=== PATIENT | female | born 1990 | race Caucasian/White ===

== ENCOUNTER 2021-04-16 10:27 | Emergency (ER) | payer OTHER ==
[~2021-04-16] VITALS: Ht 160 cm; Wt 99.8 kg
[2021-04-16 11:50] LABS: Source, Urine Clean Catch
[2021-04-16 12:08] LABS: Bilirubin, Urine Neg (Neg); Blood, Urine 5+ (Neg); Glucose Qualitative, Urine Neg (Neg); Ketones, Urine Neg (Neg); Leukocyte Esterase, Urine 3+ (Neg); Nitrite, Urine Neg (Neg); Protein, Urine 1+ (Neg); Specific Gravity, Urine 1.015 (1.003-1.022); Urobilinogen, Urine NORM (Normal)
[2021-04-16 12:59] LABS: Appearance, Urine Hazy (Clear); Color, Urine Pale Yellow (P-Yellow)
[2021-04-16 13:00] LABS: Bacteria Mod /hpf; Red Blood Cells, Urine TNTC /hpf (0-2); Squamous Epithelial Cells Rare /hpf (Few); White Blood Cells, Urine TNTC /hpf (0-5)
[2021-04-16] MEDS ORDERED: CEPH500 PO (13:24)
== END 2021-04-16 13:33 | disposition home or self-care (01) ==
LOC: ER 10:27
PROVIDERS: Physician Assistant
DX: N39.0 Urinary tract infection, site not specified (principal)
CPT/HCPCS: 81001; 81025; 87077; 87086; 87186; 99283